=== PATIENT | female | born 1965 | race Caucasian/White ===

== ENCOUNTER → 2017-03-25 | Outpatient (CLI) | payer OTHER ==
[~2017-03-25] MED LIST: /ONDA4TA OR; /PANT40TA OR; ASPI325T OR; BACITAB PO; BACT800T PO; BENA25TA4 PO; CEPH500C PO; CIPR500T19 PO; CIPR500T4 OR; COUM1TAB17 PO; COUM2.5T17 PO; FLAG500T OR; FLAG500T PO; IBUP200T2 PO; MELO15TA4 PO; MOM30SS PO; MUPI2OI EXT; PANT20TA PO; PERC7.5T8 OR; PHEN 25 PO; SM I100T PO; TRAM50TA2 PO; TYLE325T5 PO; TYLE650T30 PO; ULTR50TA PO; VANC5INJ5 PO
[2017-03-25 11:43] LABS: MEAN CORPUSCULAR HEMOGLOBIN 30.7 pg (27.0-33.0); WHITE BLOOD COUNT 6.5 K/mm3 (4.0-10.0)
[2017-03-25 11:50] LABS: INR 0.93
[2017-03-25 12:28] LABS: ALBUMIN/GLOBULIN RATIO 1.21 (1.00-1.93); ALKALINE PHOSPHATASE 72 U/L (45-117); ALT/SGPT 26 U/L (12-78); ANION GAP 8 MEQ/L (8-16); AST/SGOT 16 U/L (15-37); BILIRUBIN,TOTAL 0.4 MG/DL (0.2-1.0); BLOOD UREA NITROGEN 15 MG/DL (7-18); CALCIUM LEVEL 8.9 MG/DL (8.5-10.1); CARBON DIOXIDE LEVEL 27 MEQ/L (21-32); CHLORIDE LEVEL 104 MEQ/L (98-107); CREATININE FOR GFR 0.67 MG/DL (0.55-1.02); GLOMERULAR FILTRATION RATE > 60.0 (>51); GLUCOSE, FASTING 83 MG/DL (70-105); POTASSIUM SERUM 4.2 MEQ/L (3.5-5.1); SODIUM LEVEL 139 MEQ/L (136-145); TOTAL PROTEIN 7.3 GM/DL (6.4-8.2)
--- NOTE | 2017-03-25 12:39 | REP ---
PA and lateral chest: Comparison is 01/17/2015. The lung guallpa are clear. The cardiac size is normal The ari, mediastinum, and bony thorax are unremarkable. Impression: Negative PA and lateral chest. There is no interval change. Signed by Eric Kirk MD 03/25/2017 12:31 P
--- NOTE | 2017-03-25 19:26 | ECGEPIP ---
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
== END ==
LOC: M ADMPAT 10:23
PROVIDERS: ATTEND Orthopaedic Surgery
DX: Z01.818 Encounter for other preprocedural examination (principal); M17.11 Unilateral primary osteoarthritis, right knee

== ENCOUNTER 2017-04-08 05:47 | Inpatient (IN) | payer OTHER ==
[2017-03-25 11:29] VITALS: BP 130/94
--- NOTE | 2017-03-29 08:40 | HPE ---
DATE OF ADMISSION: 04/08/2017 CHIEF COMPLAINT: Left knee pain and stiffness. HISTORY: This is a pleasant 51-year-old female patient with progressively worsening left knee pain and stiffness. She failed to improve with conservative management to include rest, activity modification, and multitude of injections. She elected for surgery for her continued symptoms. She has pain with weightbearing activities and activities of daily living. She has consented for left total knee arthroplasty by Dr. Bridges. X-rays notable for advanced degenerative changes of the left knee. Medical optimization, none requested. CURRENT MEDICATIONS: Meloxicam 15 mg one tablet once per day. She will discontinue that 5 days prior to surgery. She also takes pantoprazole 20 mg 1 tablet once per day. ALLERGIES: Include CIPRO and KEFLEX. MEDICAL HISTORY: Includes gastric reflux disease, as well as symptomatic osteoarthritis of the left knee. PAST SURGICAL HISTORY: Total hysterectomy and surgery on her right index finger. SOCIAL HISTORY: She does smoke every day. She has been recommended to discontinue smoking. She does not consume alcohol. She continues to work. FAMILY HISTORY: Noncontributory. REVIEW OF SYSTEMS: Denies fever or chills. Denies chest pain, shortness breath or cough. Denies difficulty breathing. Denies abdominal pain. Denies nausea or vomiting. Notes persistent pain in her left knee with weightbearing activities and activities of daily living. PHYSICAL EXAMINATION: Physical exam today reveals a well-nourished, well-developed, alert female patient. She walks with a slow gait. She favors her left side. Exam of the left knee does reveal the skin to be intact. No erythema, edema or ecchymosis. Irritability on knee range of motion. Patellar grind is positive. There is tenderness mainly along the medial joint line. Range of motion is near full but irritability at the extremes of range of motion. Calf is soft, nontender to palpation. She can sensate light touch. Dorsalis pedis, posterior tibialis pulses are palpable. Neck is supple without adenopathy or jugular venous distention (JVD). Lungs are clear to auscultation without rales or wheeze. Heart has regular rate and rhythm. Abdomen with bowel sounds present. VITAL SIGNS: Notable for weight 212 pounds, height 63 inches, temperature 98.5, pulse 75, blood pressure 138/80, respirations 15. LABORATORY DATA: Chest x-ray is no acute cardiopulmonary process noted. EKG sinus bradycardia. WBC count 6.5, RBC count 4.5, hemoglobin 13.6, hematocrit 42.4, PT 12.5, INR 0.93. Urine culture negative. Nasal sinus culture is pending. Urinalysis within normal limits. Sed rate of 8, sodium 83, BUN 15, creatinine 0.67, potassium is 4.2. Sodium is 139. IMPRESSION: Symptomatic osteoarthritis of the left knee. PLAN: She has consented for a left knee arthroplasty by Dr. Bridges.
[2017-04-08] VITALS (7 sets, daily range): BP systolic 103–153; BP diastolic 50–86
[~2017-04-08] VITALS: Ht 165.1 cm; Wt 97.1 kg
[~2017-04-08 05:47] MED LIST changes: +BUPIVACAINE HCL 0.25% 30 ML VIAL As Ordered ONE; -COUM1TAB17 PO; -COUM2.5T17 PO; +EPINEPHrine 1MG/10ML SYRINGE 1.5IN As Ordered ONE; -MUPI2OI EXT; -TRAM50TA2 PO; +TRANEXAMIC ACID 100 MG/ML 10ML VIAL As Ordered ONE; +ceFAZolin 1GM INJ (J0690) As Ordered ONE
[2017-04-08] MEDS ORDERED: LR 1,000 ML IV SCH ×3 (06:00→09:45)
[2017-04-08] MEDS ORDERED: CLINDAMYCIN 600 MG in APPROPRIATE DILUENT 1 EA IV ONE (06:00)
[2017-04-08] MEDS ORDERED: PROPOFOL 200 MG/20 ML VIAL As Ordered ONE (06:21)
[2017-04-08] MEDS ORDERED: LIDOCAINE 2% INJ 100 MG/5 ML SDV (FOR ANES.) As Ordered ONE (06:21)
[2017-04-08] MEDS ORDERED: MUPI2OI EXT (06:36)
[2017-04-08] MEDS ORDERED: COUM1TAB17 PO (06:37)
[2017-04-08] MEDS ORDERED: fentaNYL 100 MCG/2 ML INJECTION (J3010) As Ordered ONE ×3 (07:08→08:51)
[2017-04-08] MEDS ORDERED: MIDAZOLAM INJ 2 MG/2 ML VIAL (J2250) As Ordered ONE ×2 (07:08→08:51)
[2017-04-08] MEDS ORDERED: CLINDAMYCIN INJ 900MG/6ML VIAL As Ordered ONE (07:15)
[2017-04-08] MEDS ORDERED: EPINEPHrine INJ 1 MG/ML 1ML AMP As Ordered ONE (07:17)
[2017-04-08] MEDS: PANTOPRAZOLE 20 MG TAB PO SCH (09:00)
[2017-04-08] MEDS ORDERED: MIDAZOLAM INJ 2 MG/2 ML VIAL (J2250) IV ONE ×2 (09:15→09:30)
[2017-04-08] MEDS ORDERED: fentaNYL 100 MCG/2 ML INJECTION (J3010) IV ONE (09:15)
[2017-04-08] MEDS ORDERED: MORPHINE 1MG/ML IN 0.9% NACL 100ML IV BAG As Ordered ONE (09:33)
[2017-04-08] MEDS ORDERED: FLEET ENEMA PR PRN (09:45)
[2017-04-08] MEDS ORDERED: HYDROmorphone HCL 1 MG/ML SYRINGE (J1170) IV PRN (09:45)
[2017-04-08] MEDS: LR 1,000 ML IV SCH ×2 (09:45→23:05)
[2017-04-08] MEDS ORDERED: ACETAMINOPHEN TAB 650MG DOSE (2X325MG) PO PRN (09:45)
[2017-04-08] MEDS ORDERED: PERCOCET 5MG/325MG TAB PO PRN (09:45)
[2017-04-08] MEDS ORDERED: ONDANSETRON 4MG/2ML VIAL (J2405) IV PRN ×2 (09:45→10:00)
[2017-04-08] MEDS ORDERED: fentaNYL 100 MCG/2 ML INJECTION (J3010) IV PRN (09:45)
[2017-04-08] MEDS ORDERED: NALBUPHINE HCL 10 MG/ML AMP (J2300) IV PRN (10:00)
[2017-04-08] MEDS ORDERED: diphenhydrAMINE INJ 50MG/ML VIAL (J1200) IV PRN (10:00)
[2017-04-08] MEDS ORDERED: MORPHINE 1MG/ML IN 0.9% NACL 100ML IV BAG IV PRN (10:00)
[2017-04-08] MEDS ORDERED: PATIENT IS CURRENTLY ON AN ON-Q PAIN BUSTER PAIN RELIEF SYSTEM XX SCH (10:00)
[2017-04-08] MEDS ORDERED: EPIDURAL/PCA KEYS XX PRN (10:00)
[2017-04-08] MEDS ORDERED: NALOXONE INJ 0.4 MG/1 ML VIAL (J2310) IV PRN (10:00)
[2017-04-08] MEDS ORDERED: MEPERIDINE INJ 25 MG/ML VIAL (J2175) As Ordered ONE (10:04)
[2017-04-08] MEDS: MEPERIDINE INJ 25 MG/ML VIAL (J2175) IV PRN ×2 (10:05→10:10)
[2017-04-08] MEDS ORDERED: LIDOCAINE 1% MDV 20ML VIAL ONE (10:40)
[2017-04-08] MEDS ORDERED: dexameTHASONE 10 MG/1 ML VIAL PRES.FREE (J1100) ONE (10:40)
[2017-04-08] MEDS ORDERED: ROPIvacaine 0.5% 30 ML INJECTION (J2795) ONE (10:40)
[2017-04-08] MEDS: ONDANSETRON 4MG/2ML VIAL (J2405) IV PRN ×2 (14:05→22:20)
[2017-04-08] MEDS: CLINDAMYCIN 600 MG in APPROPRIATE DILUENT 1 EA IV SCH (16:22)
[2017-04-08] MEDS ORDERED: WARFARIN SOD 5 MG TAB PO ONE (17:00)
[2017-04-09] MEDS: CLINDAMYCIN 600 MG in APPROPRIATE DILUENT 1 EA IV SCH (00:11)
[2017-04-09 02:00] VITALS: BP 121/74
[2017-04-09 06:00] VITALS: BP 109/70
[2017-04-09] MEDS ORDERED: PERCOCET 5MG/325MG TAB PO PRN ×2 (06:45)
[2017-04-09 07:05] LABS: MEAN CORPUSCULAR HEMOGLOBIN 31.1 pg (27.0-33.0); MEAN CORPUSCULAR HGB CONC 32.7 g/dl (32.0-36.5); RED CELL DISTRIBUTION WIDTH 13.1 % (11.5-14.5); WHITE BLOOD COUNT 9.8 K/mm3 (4.0-10.0)
[2017-04-09 07:12] LABS: INR 1.24
[2017-04-09] MEDS: MOM 30ML SUSPENSION UDC PO SCH (09:25)
[2017-04-09] MEDS: MIRALAX *UNIT DOSE* 17GM PACKET PO SCH (09:25)
[2017-04-09] MEDS: PANTOPRAZOLE 20 MG TAB PO SCH (09:26)
[2017-04-09] MEDS: SENOKOT S TAB PO SCH ×2 (09:26→21:00)
[2017-04-09] MEDS: ONDANSETRON 4 MG TAB (S0181) PO PRN ×3 (09:29→17:22)
[2017-04-09 10:00] VITALS: BP 125/69
--- NOTE | 2017-04-09 10:13 | REP ---
AP LATERAL LEFT KNEE: 04/09/2017 COMPARISON: 12/02/2015, 01/17/2015. CLINICAL HISTORY: Status post left total knee arthroplasty. FINDINGS: Two-view show skin yanni anteriorly and left total knee arthroplasty hardware with the three components well-aligned in relationship to the [place] bone and each other. There is a drain in the soft tissues laterally about the knee. Alignment of the proximal and distal components as well as the tibial fibular articulation normal. IMPRESSION: 1. Status post left total knee arthroplasty with skin yanni and a drain in the medial soft tissues about the knee. Alignment of the prosthetic components is normal. Signed by Fidel Herrera MD 04/09/2017 06:55 P
--- NOTE | 2017-04-09 10:36 | RO ---
DATE OF PROCEDURE: 04/08/2017 PREPROCEDURE DIAGNOSIS: Left knee osteoarthritis. POSTOPERATIVE DIAGNOSIS: Left knee osteoarthritis. PROCEDURE: Left total knee arthroplasty using PFC rotating platform size 4 narrow femur, size 3 tibial tray, 10 polyethylene, 32 patellar button. SURGEON: Everardo Bridges MD BUSINESS FUNCTIONAL ANALYST: SYLVIA Alejandre ANESTHESIA: Spinal ESTIMATED BLOOD LOSS: Less than 50. COMPLICATIONS: None. INDICATIONS: This is a 51-year-old woman who is obese and has had severe knee pain and limitations, inability to get around and she wished to go ahead with a knee replacement, having failed conservative management. She understood the nature of the procedure and the risks, including bleeding, infection, damage to nerves, vessels, persistent pain, wear loosening, blood clots, medical problems, among others. She understood that these are often harder on people that are a little bit younger and often harder on obese patients with a much higher complication rate. She wished proceed. DESCRIPTION OF PROCEDURE: The patient was taken to the operating room and placed in supine position after spinal anesthesia was induced. The left lower extremity was prepped and draped in usual sterile fashion. Tourniquet was placed and inflated to 325 due to her significant obesity. Time-out was performed. A longitudinal incision was made over the anterior aspect of the knee. A medial parapatellar arthrotomy was performed per routine. I then everted the patella, removed some the fat pad for visualization. Flexed the knee up. Used a canal initiating reamer around the femoral side, followed by the intramedullary guide set at 5 degrees of valgus and 10. The guide was pinned in place. The assistant store leader made the distal femoral cut and we removed the excess bone. I sized the femur to be a 4, but I felt that a 4 narrow would be the best fit. This was secured in place. We used the external rotation guide, pinned this in place and the four cutting block was then placed. This was secured in place and the remaining cuts were made. I then prepared the tibia. Posterior retractors were placed. We used the tibial alignment guide to set the appropriate amount of posterior slope and valgus and pinned this in place at about 2 mm off the low side, which was 10 off the high side. The cut was then made after the external alignment guide was used. Removed excess bone. Removed soft tissue and osteophytes from either side of the knee. The spacer blocks were then used. A size 10 was felt to be appropriate in flexion/extension. had excellent stability and alignment. I did have to free up the MCL to some degree. Tibial tray was prepared with a size 3 tray, pinned in place, drilled, broached, and the trial polyethylene was placed. We also placed the femoral component and excellent range of motion and alignment were noted. The patella was then prepared. Freehand cut was made removing 7 mm of bone. I then sized to be a 32, drilled, placed the trial button, put the knee through range of motion again. Very pleased with the position of the components. She had good flexion back to the point where her soft tissue impinged behind her leg. I then drilled the end of the femur, as assistant store leader for the bone cement in the modern technique. We then cemented on the tibial tray. After copious irrigation, we impacted this in place. We dried the bony surfaces, removed excess bone cement then placed the polyethylene size 10 x 4 and femur was placed, cemented in place, and impacted down. Removed excess bone cement, cemented on the patella, held it in place with a patellar clamp and removed excess bone cement. This was held in place until the cement hardened. I closed the deep layer with some interrupted #1 Vicryl suture and then a Stratafix suture was used starting at the midportion. We worked in both directions, obtaining an excellent watertight closure. We had irrigated multiple times up to this point. We again irrigated, closed the subcutaneous with #2-0 Vicryl and the skin with yanni. A PainBuster catheter was inserted through the superolateral aspect of the knee and primed, and then hooked up in the usual fashion. Tourniquet was deflated. Sterile dressing had been applied. She was taken to recovery room in stable condition. There were no known complications. Plan will be routine postop for a knee replacement. ADDENDUM: 04/08/2017, jaclyn The assistant store leader was instrumental in holding retractors, making one of the bone cuts, mixing the cement and assisting in wound closure.
[2017-04-09 14:00] VITALS: BP 126/69
[2017-04-09] MEDS ORDERED: MAALOX 30 ML SUSP *UDC PO PRN (15:45)
[2017-04-09] MEDS: traMADol 50 MG TAB PO PRN ×2 (15:49→20:01)
[2017-04-09] MEDS ORDERED: WARFARIN SOD 5 MG TAB PO ONE (17:00)
[2017-04-09 18:00] VITALS: BP 132/72
[2017-04-09 22:00] VITALS: BP 135/86
[2017-04-10] MEDS: traMADol 50 MG TAB PO PRN ×3 (02:05→14:12)
[2017-04-10 06:00] VITALS: BP 133/78
[2017-04-10 06:42] LABS: MEAN CORPUSCULAR HEMOGLOBIN 30.6 pg (27.0-33.0); MEAN CORPUSCULAR HGB CONC 32.1 g/dl (32.0-36.5); MEAN CORPUSCULAR VOLUME 95.4 fl (80.0-96.0); RED CELL DISTRIBUTION WIDTH 13.1 % (11.5-14.5); WHITE BLOOD COUNT 8.6 K/mm3 (4.0-10.0)
[2017-04-10 06:52] LABS: INR 1.48
[2017-04-10] MEDS: PANTOPRAZOLE 20 MG TAB PO SCH (07:54)
[2017-04-10] MEDS: MOM 30ML SUSPENSION UDC PO SCH (07:54)
[2017-04-10] MEDS: SENOKOT S TAB PO SCH (07:55)
[2017-04-10] MEDS: MIRALAX *UNIT DOSE* 17GM PACKET PO SCH (07:55)
[2017-04-10] MEDS ORDERED: COUM2.5T17 PO (07:58)
[2017-04-10] MEDS ORDERED: TRAM50TA2 PO (07:58)
--- NOTE | 2017-04-14 08:04 | DSES ---
DATE OF ADMISSION: 04/08/2017 DATE OF DISCHARGE: 04/10/2017 ADMISSION DIAGNOSIS: Left knee arthritis. OTHER DIAGNOSIS: Gastric reflux disease. OPERATION PERFORMED: Left total knee arthroplasty. DISCHARGE DIAGNOSIS: Left knee arthritis status post left total knee arthroplasty. HISTORY: This is a pleasant 51-year-old female with progressively worsening left knee pain and stiffness. The patient was admitted for elective left knee replacement. HOSPITAL COURSE: The patient was admitted on the day of surgery and underwent left total knee arthroplasty which was uneventful. Her hospital course was without complications. The patient was up with physical therapy per the protocol and her pain was controlled. On the day of discharge the patient was doing well. She was weightbearing as tolerated, will move her knee to prevent stiffness, will use adjusted dose Coumadin and CINDY stockings for DVT prophylaxis. She will use oral medications for pain control. Also she will follow in the office in 2 weeks for staple removal, will resume preoperative medications and diet and she was given instructions for wound monitoring and activity limitations. Please refer to the medical record for further detail.
== END 2017-04-10 15:25 | disposition home health service (06) | DRG 302 ==
LOC: M OR 05:47 → M MS5PR 13:00
PROVIDERS: ADMIT Orthopaedic Surgery; ATTEND Orthopaedic Surgery
PROC: 0SRD0J9 Replacement of Left Knee Joint with Synthetic Substitute, Cemented, Open Approach (ICD-10-PCS; principal; 2017-04-08 07:30)
DX: M17.12 Unilateral primary osteoarthritis, left knee (principal); F17.210 Nicotine dependence, cigarettes, uncomplicated; K21.9 Gastro-esophageal reflux disease without esophagitis; Z88.1 Allergy status to other antibiotic agents; R26.9 Unspecified abnormalities of gait and mobility

== ENCOUNTER → 2017-04-11 | Outpatient (REF) | payer OTHER ==
[~2017-04-11] MED LIST changes: -BUPIVACAINE HCL 0.25% 30 ML VIAL As Ordered ONE; +COUM1TAB17 PO; +COUM2.5T17 PO; -EPINEPHrine 1MG/10ML SYRINGE 1.5IN As Ordered ONE; +MUPI2OI EXT; +TRAM50TA2 PO; -TRANEXAMIC ACID 100 MG/ML 10ML VIAL As Ordered ONE; -ceFAZolin 1GM INJ (J0690) As Ordered ONE
[2017-04-11 12:41] LABS: INR 1.83
== END ==
LOC: M SHH 11:28
PROVIDERS: ATTEND Nurse Practitioner Family
DX: Z51.81 Encounter for therapeutic drug level monitoring (principal); Z79.01 Long term (current) use of anticoagulants

== ENCOUNTER → 2017-04-15 | Outpatient (REF) | payer OTHER ==
[2017-04-15 16:18] LABS: INR 3.02
== END ==
LOC: M SHH 15:03
PROVIDERS: ATTEND Nurse Practitioner Family
DX: Z51.81 Encounter for therapeutic drug level monitoring (principal); Z79.01 Long term (current) use of anticoagulants

== ENCOUNTER → 2017-04-18 | Outpatient (REF) | payer OTHER ==
[2017-04-18 17:24] LABS: INR 1.21
== END ==
LOC: M SHH 15:43
PROVIDERS: ATTEND Nurse Practitioner Family
DX: Z51.81 Encounter for therapeutic drug level monitoring (principal); Z79.01 Long term (current) use of anticoagulants

== ENCOUNTER → 2017-04-22 | Outpatient (REF) | payer OTHER ==
[2017-04-22 17:01] LABS: INR 1.23
== END ==
LOC: M LABDRAW1 15:48
PROVIDERS: ATTEND Nurse Practitioner Family
DX: Z51.81 Encounter for therapeutic drug level monitoring (principal); Z79.01 Long term (current) use of anticoagulants

== ENCOUNTER → 2017-04-25 | Outpatient (REF) | payer OTHER ==
[2017-04-25 13:41] LABS: INR 1.66
== END ==
LOC: M LAB REF 12:37
PROVIDERS: ATTEND Orthopaedic Surgery
DX: Z51.81 Encounter for therapeutic drug level monitoring (principal); Z79.01 Long term (current) use of anticoagulants; M17.12 Unilateral primary osteoarthritis, left knee

== ENCOUNTER → 2017-04-29 | Outpatient (REF) | payer OTHER ==
[2017-04-29 14:30] LABS: INR 2.24
== END ==
LOC: M LABDRAW1 11:24
PROVIDERS: ATTEND Orthopaedic Surgery
DX: M17.12 Unilateral primary osteoarthritis, left knee (principal); Z98.890 Other specified postprocedural states

== ENCOUNTER → 2017-05-02 | Outpatient (REF) | payer OTHER ==
[2017-05-02 10:46] LABS: INR 1.96
== END ==
LOC: M LABDRAW1 10:18
PROVIDERS: ATTEND Orthopaedic Surgery
DX: Z51.81 Encounter for therapeutic drug level monitoring (principal); Z79.01 Long term (current) use of anticoagulants; M17.12 Unilateral primary osteoarthritis, left knee; Z96.652 Presence of left artificial knee joint

== ENCOUNTER → 2017-05-06 | Outpatient (REF) | payer OTHER ==
[2017-05-06 12:20] LABS: INR 1.49
== END ==
LOC: M LAB REF 12:00
PROVIDERS: ATTEND Orthopaedic Surgery
DX: Z51.81 Encounter for therapeutic drug level monitoring (principal); Z79.01 Long term (current) use of anticoagulants

== ENCOUNTER → 2017-07-31 | Outpatient (REF) ==
--- NOTE | 2017-07-31 13:42 | REP ---
Clinical: Pain and disability. Technique: AP, lateral, coned-down views of the lumbosacral spine. Findings: Alignment and lordosis maintained without acute fracture / compression injury or subluxation. Advanced degenerative disc osteophyte complex at the L4-5 and L5-S1 levels include marginal osteophytes, endplate sclerosis, disc space obliteration and hypertrophic facet changes. Remainder examination is relatively normal for age. Impression: Advanced degenerative changes at the L4-5 and L5-S1 levels. Signed by Waldo Hickman MD 07/31/2017 01:33 P
== END ==
LOC: M SMT 13:07
PROVIDERS: ATTEND Internal Medicine
DX: M51.36 Other intervertebral disc degeneration, lumbar region (principal)

== ENCOUNTER → 2017-09-28 | Outpatient (CLI) | payer OTHER ==
[2017-09-28 09:24] LABS: BASO % 0.5 % (0.0-1.0); EOS # 0.1 10^3/uL (0.0-0.50); EOS % 1.2 % (0.0-3.0); HEMOGLOBIN 14.4 g/dl (12.0-16.0); IMMATURE GRANULOCYTE % 0.2 % (0-0); LYMPH # 2.7 10^3/uL (1.5-4.5); LYMPH % 40.2 % (24.0-44.0); MEAN CORPUSCULAR HEMOGLOBIN 29.1 pg (27.0-33.0); MEAN CORPUSCULAR VOLUME 90.9 fl (80.0-96.0); MONO # 0.6 10^3/uL (0.0-0.8); MONO % 9.6 % (0.0-5.0); NEUTROPHILS # 3.2 10^3/uL (1.8-7.7); NEUTROPHILS % 48.3 % (36.0-66.0); PLATELET COUNT, AUTOMATED 311 10^3/uL (150-450); RED BLOOD COUNT 4.95 10^6/uL (4.00-5.40); RED CELL DISTRIBUTION WIDTH 13.9 % (11.5-14.5); WHITE BLOOD COUNT 6.6 10^3/uL (4.0-10.0)
[2017-09-28 09:48] LABS: ANION GAP 10 MEQ/L (8-16); BLOOD UREA NITROGEN 21 MG/DL (7-18); CALCIUM LEVEL 8.8 MG/DL (8.5-10.1); CARBON DIOXIDE LEVEL 21 MEQ/L (21-32); CHLORIDE LEVEL 109 MEQ/L (98-107); CREATININE FOR GFR 0.76 MG/DL (0.55-1.02); GLOMERULAR FILTRATION RATE > 60.0 (>51); GLUCOSE, FASTING 111 MG/DL (70-105); POTASSIUM SERUM 4.4 MEQ/L (3.5-5.1); SODIUM LEVEL 140 MEQ/L (136-145)
== END ==
LOC: M LAB 08:39
DX: K57.92 Diverticulitis of intestine, part unspecified, without perforation or abscess without bleeding (principal)
CPT/HCPCS: 80048

== ENCOUNTER → 2018-10-15 | Outpatient (CLI) | payer OTHER ==
[~2018-10-15] MED LIST changes: +AMMO12CR4 TOP; +AUGM875T28 PO; +IBUP1TAB6 PO; +MELO15TA28 PO; -MELO15TA4 PO; -PANT20TA PO; +PANT20TA2 PO
[2018-10-15 17:38] LABS: BASO % 0.2 % (0.0-1.0); EOS % 0.2 % (0.0-3.0); HEMATOCRIT 47.1 % (36.0-47.0); LYMPH # 1.1 10^3/uL (1.5-4.5); LYMPH % 13.7 % (24.0-44.0); MEAN CORPUSCULAR HEMOGLOBIN 29.7 pg (27.0-33.0); MEAN CORPUSCULAR HGB CONC 31.8 g/dl (32.0-36.5); MEAN CORPUSCULAR VOLUME 93.3 fl (80.0-96.0); MONO # 0.7 10^3/uL (0.0-0.8); MONO % 8.1 % (0.0-5.0); NEUTROPHILS # 6.3 10^3/uL (1.8-7.7); NEUTROPHILS % 77.4 % (36.0-66.0); PLATELET COUNT, AUTOMATED 293 10^3/uL (150-450); RED BLOOD COUNT 5.05 10^6/uL (4.00-5.40); WHITE BLOOD COUNT 8.2 10^3/uL (4.0-10.0)
[2018-10-15 17:42] LABS: ALT/SGPT 46 U/L (12-78); BILIRUBIN,TOTAL 0.6 MG/DL (0.2-1.0); BLOOD UREA NITROGEN 19 MG/DL (7-18); CALCIUM LEVEL 8.9 MG/DL (8.5-10.1); CARBON DIOXIDE LEVEL 25 MEQ/L (21-32); CHLORIDE LEVEL 104 MEQ/L (98-107); CREATININE FOR GFR 0.86 MG/DL (0.55-1.30); GLOMERULAR FILTRATION RATE > 60.0 (>51); GLUCOSE, FASTING 77 MG/DL (70-100); POTASSIUM SERUM 4.2 MEQ/L (3.5-5.1); SODIUM LEVEL 137 MEQ/L (136-145)
[2018-10-15 17:43] LABS: ALBUMIN 4.5 GM/DL (3.2-5.2); LIPASE 91 U/L (73-393); TOTAL PROTEIN 8.3 GM/DL (6.4-8.2)
== END ==
LOC: M WUC 12:54
PROVIDERS: ATTEND Physician Assistant
DX: K57.32 Diverticulitis of large intestine without perforation or abscess without bleeding (principal)

== ENCOUNTER 2018-10-20 16:10 | Inpatient (IN) | payer OTHER ==
[~2018-10-20] VITALS: Ht 162.6 cm; Wt 108.4 kg
[~2018-10-20 16:10] MED LIST changes: -AMMO12CR4 TOP; -AUGM875T28 PO; -IBUP1TAB6 PO
[2018-10-20] MEDS ORDERED: NS 1,000 ML IV SCH (17:01)
[2018-10-20] MEDS ORDERED: PANTOPRAZOLE 40MG INJ (PROTONIX) (C9113) IV ONE (17:15)
[2018-10-20] MEDS ORDERED: ONDANSETRON 4MG/2ML VIAL (J2405) IV ONE ×2 (17:15→22:15)
[2018-10-20] MEDS: MORPHINE 2 MG/ML 1ML SYRINGE (J2270) IV PRN ×2 (17:43→22:54)
[2018-10-20 17:51] LABS: BASO % 0.3 % (0.0-1.0); EOS # 0.1 10^3/uL (0.0-0.50); EOS % 0.5 % (0.0-3.0); HEMATOCRIT 40.4 % (36.0-47.0); HEMOGLOBIN 13.4 g/dl (12.0-15.5); LYMPH # 2.2 10^3/uL (1.5-4.5); LYMPH % 22.2 % (24.0-44.0); MEAN CORPUSCULAR HGB CONC 33.2 g/dl (32.0-36.5); MEAN CORPUSCULAR VOLUME 90.4 fl (80.0-96.0); MONO # 0.5 10^3/uL (0.0-0.8); MONO % 5.6 % (0.0-5.0); NEUTROPHILS # 6.9 10^3/uL (1.8-7.7); PLATELET COUNT, AUTOMATED 262 10^3/uL (150-450); RED BLOOD COUNT 4.47 10^6/uL (4.00-5.40); WHITE BLOOD COUNT 9.7 10^3/uL (4.0-10.0)
[2018-10-20] MEDS: GASTROGRAFIN SOLUTION 30ML PO SCH ×2 (18:10→18:40)
[2018-10-20 18:18] LABS: INR 1.05; PROTHROMBIN TIME 13.8 SECONDS (12.1-14.4)
[2018-10-20 18:24] LABS: ALT/SGPT 52 U/L (12-78); BILIRUBIN,DIRECT 0.1 MG/DL (0.0-0.2); BILIRUBIN,TOTAL 0.3 MG/DL (0.2-1.0); BLOOD UREA NITROGEN 12 MG/DL (7-18); CALCIUM LEVEL 8.8 MG/DL (8.5-10.1); CARBON DIOXIDE LEVEL 26 MEQ/L (21-32); CHLORIDE LEVEL 104 MEQ/L (98-107); CREATININE FOR GFR 0.73 MG/DL (0.55-1.30); GLOMERULAR FILTRATION RATE > 60.0 (>51); GLUCOSE, FASTING 92 MG/DL (70-100); LIPASE 139 U/L (73-393); POTASSIUM SERUM 3.8 MEQ/L (3.5-5.1); SODIUM LEVEL 138 MEQ/L (136-145); TOTAL PROTEIN 7.2 GM/DL (6.4-8.2)
[2018-10-20] MEDS ORDERED: METOCLOPRAMIDE INJ 10MG/2ML VIAL (J2765) IV ONE (18:30)
[2018-10-20] MEDS ORDERED: ISOVUE-370 76% 100ML VIAL (Q9967) As Ordered ONE (19:55)
--- NOTE | 2018-10-20 22:06 | REPVR ---
EXAM: CT Abdomen and Pelvis With Contrast EXAM DATE/TIME: 10/20/18 (8:11pm) CLINICAL HISTORY: 53 year old female with generalized abdominal pain. Diverticulitis. TECHNIQUE: Axial computed tomography images of the abdomen and pelvis with intravenous contrast. All CT scans at this facility use at least one of these dose optimization techniques: automated exposure control; mA and/or kV adjustment per patient size (includes targeted exams where dose is matched to clinical indication); or iterative reconstruction. Coronal and sagittal reformatted images were created and reviewed. CONTRAST: 100 ml of Isovue 370 administered intravenously COMPARISON: CT ABDOMEN PELVIS of 11/29/15 FINDINGS: Lower thorax: No acute findings. No pleural effusions. ABDOMEN: Liver: No solid mass. Diffuse fatty infiltration. Gallbladder and bile ducts: Distended gallbladder. No calcified stones. No ductal dilatation. Pancreas: Normal. No ductal dilatation. Spleen: Normal. No splenomegaly. Adrenals: Normal. No mass. Kidneys and ureters: Normal. No hydronephrosis. Stomach and bowel: Distended stomach, filled with oral contrast and air. Multiple fluid-filled, distended small bowel loops. Some of the distended, distal small bowel loops show 'fecalization' of bowel contents. More proximal small bowel loops are less distended. The colon is not significantly distended. Probable previous surgery involving small bowel in the right upper pelvis. No diverticulitis changes. Appendix: Perhaps a normal appendix is visualized. No evidence of appendicitis. PELVIS: Bladder: Unremarkable as visualized. Reproductive: Unremarkable as visualized. ABDOMEN and PELVIS: Intraperitoneal space: Normal. No free air. No significant fluid collection. Bones/joints: No acute fracture nor dislocation. Degenerative changes in the lower lumbar spine. Soft tissues: Unremarkable. Vasculature: Normal. No abdominal aortic aneurysm. Lymph nodes: Normal. No enlarged lymph nodes. IMPRESSION: Suspect a mechanical small bowel obstruction (SBO). The point of obstruction may be in the proximal half of the ileum, eg. An alternative consideration is small bowel ileus, perhaps of some chronicity. Previous surgery involving small bowel in the right upper pelvis. No free air. No bowel obstruction. No abscess. No diverticulitis changes. No hydronephrosis. Close follow-up and surgical consultation are suggested. Electronically signed by: Sabrina Crabtree On 10/20/2018 22:06:21 PM
[2018-10-20] MEDS ORDERED: AUGM875T28 PO (22:52)
[2018-10-20] MEDS ORDERED: IBUP1TAB6 PO (22:52)
[2018-10-20] MEDS ORDERED: AMMO12CR4 TOP (22:52)
[2018-10-20] MEDS ORDERED: MELO15TA28 PO (22:52)
[2018-10-20] MEDS ORDERED: ACETAMINOPHEN TAB 650MG DOSE (2X325MG) PO PRN (23:15)
[2018-10-20] MEDS ORDERED: MORPHINE 4 MG/ML 1ML VIAL/SYRINGE (J2270) IV PRN (23:15)
[2018-10-20] MEDS ORDERED: KETOROLAC 30 MG/ML VIAL (J1885) IV ONE (23:30)
[2018-10-21] MEDS: MORPHINE 4 MG/ML 1ML VIAL/SYRINGE (J2270) IV PRN ×2 (02:15→13:50)
[2018-10-21] MEDS: LR 1,000 ML IV SCH ×4 (02:18→20:53)
[2018-10-21] MEDS: METOCLOPRAMIDE INJ 10MG/2ML VIAL (J2765) IV PRN ×3 (05:52→20:39)
[2018-10-21] MEDS: KETOROLAC 30 MG/ML VIAL (J1885) IV PRN ×2 (05:52→20:48)
[2018-10-21] MEDS: HEPARIN SOD (PORCINE) 5000 UNITS/ML VIAL SC SCH ×3 (06:05→20:39)
[2018-10-21] MEDS: PANTOPRAZOLE 40MG INJ (PROTONIX) (C9113) IV SCH (09:24)
[2018-10-21] MEDS: ONDANSETRON 4MG/2ML VIAL (J2405) IV PRN (10:46)
--- NOTE | 2018-10-21 10:51 | REP ---
Portable supine abdomen two views: Comparison is the abdomen and pelvis CT of 10/20/2018. The bowel gas pattern is normal, however, in the absence of upright views air-fluid levels cannot be determined. Fluid-filled dilated small bowel loops cannot be identified on plain films. There are surgical clips in the lower abdomen. The tip of an NG tube is seen in the left upper quadrant. The bladder is opacified, likely from the IV contrast for the comparison CT. Impression: Normal bowel gas pattern on plain films. However, fluid filled dilated small bowel loops cannot be identified on plain films. Air-fluid levels cannot be evaluated in the absence of upright views. Electronically Signed by Eric Kirk MD 10/21/2018 10:43 A
[2018-10-21 12:00] VITALS: BP 141/79
--- NOTE | 2018-10-21 17:38 | HPE ---
DATE OF ADMISSION: 10/20/2018 ADMITTING DIAGNOSIS: Small bowel obstruction. HISTORY OF PRESENT ILLNESS: The patient is a pleasant 53-year-old woman who presented to the emergency department with a history of intermittent episodes of some crampy abdominal pain, primarily in the left upper quadrant. She reports that these have been going on for some time intermittently and will cause pain and then resolve. Over the last week or so, she has noticed increased pains and then since Saturday10/19/2018, pain became more severe and then she developed some nausea and had vomiting starting on 10/20/2018. She presented to the emergency department and underwent evaluation which included a CT scan suggesting a possible small bowel obstruction. The patient in 2012 had undergone a sigmoid colectomy for recurring episodes of diverticulitis. Following this, she developed a wound infection and as part of her wound breakdown, she developed a small herniation which led to a limited small bowel resection and anastomosis. She has had no other abdominal surgery. Because of her CT findings, I was consulted to evaluate the patient regarding her possible need for surgery. ALLERGIES: Reported to the CEPHALEXIN and CIPROFLOXACIN. CURRENT MEDICATIONS: Include: - ammonium lactate cream applied to her right heel daily - Augmentin 875/125 mg tablets twice daily and this had been started last week - ibuprofen 600 mg by mouth three times a day as needed for pain - meloxicam 15 mg by mouth daily as needed for pain - Protonix 20 mg by mouth daily at noon PAST SURGICAL HISTORY: Includes a left total knee replacement. She underwent her sigmoid colectomy followed by a small bowel resection back in 2012. She has apparently had a cystoscopy and actually this was at the time of her bowel resection for placement of stents. She has had surgery on her left index finger as well as a hysterectomy. She had a colonoscopy about a year ago. PAST MEDICAL HISTORY: Shows no history of significant cardiac issues. She has a history of some gastroesophageal reflux. She has no endocrine disorders. She does have a history of some chronic back pain. FAMILY HISTORY: Noncontributory. PHYSICAL EXAMINATION: Reveals a pleasant woman lying on the hospital stretcher. She moans occasionally. She seems to move without assistance. She is alert and oriented. Skin is warm and dry. Mucous membranes are somewhat tacky. The neck is supple without mass or bruit. Lungs are clear to auscultation bilaterally. Heart examination shows a regular rate and rhythm. The abdomen shows a fairly quiet abdomen. She has a somewhat irregular midline scar, about 18 cm in length with some significant indentation toward the lower end of this. There is no sign of hernia. The abdomen is otherwise soft and with only some very mild direct tenderness. There is no peripheral edema and she has palpable radial and dorsalis pedis pulses. LABORATORY STUDIES: Include a CBC which revealed a white count of 10, hemoglobin of 13, hematocrit of 40, and a platelet count of 262,000. Differential count showed 71% neutrophils and 22% lymphocytes. Chemistry profile showed normal electrolytes, BUN, creatinine and glucose. Liver function tests were all entirely normal as well as was the lipase. CT scan images, I reviewed personally. She has two anastomoses identified in the bowel. One of these is in the distal sigmoid and the other is in a loop of small bowel low in the midportion of the abdomen. There is no definite free fluid and no free air. There is some mild dilation which seems to be on the proximal side or upstream side of her small bowel anastomosis. There are some mildly dilated fluid-filled loops of small bowel proximal to this. IMPRESSION: Small intestinal obstruction secondary to adhesions. PLAN: The patient is being admitted for management of her apparent intestinal obstruction. A nasogastric tube was ordered by the nurse practitioner in the emergency department and this will be placed and placed to low intermittent suction. She will be kept on IV maintenance fluid. I will not continue her antibiotics as the CT shows no sign of infection. She can received analgesics as necessary as well as antinausea agents. We will repeat kidney, ureter and bladder (KUB) in the morning to assess pattern of bowel gas to assess the progress of her obstruction.
--- NOTE | 2018-10-21 18:57 | ECGEPIP ---
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
[2018-10-21 20:58] VITALS: BP 118/70
[2018-10-22] VITALS (8 sets, daily range): BP systolic 114–173; BP diastolic 58–81
[2018-10-22] MEDS: LR 1,000 ML IV SCH ×2 (05:05→14:07)
[2018-10-22] MEDS: HEPARIN SOD (PORCINE) 5000 UNITS/ML VIAL SC SCH ×3 (05:06→23:01)
[2018-10-22] MEDS: KETOROLAC 30 MG/ML VIAL (J1885) IV PRN ×2 (07:14→07:24)
[2018-10-22] MEDS: METOCLOPRAMIDE INJ 10MG/2ML VIAL (J2765) IV PRN ×2 (07:14→14:00)
[2018-10-22] MEDS: ONDANSETRON 4MG/2ML VIAL (J2405) IV PRN (08:01)
[2018-10-22] MEDS: PANTOPRAZOLE 40MG INJ (PROTONIX) (C9113) IV SCH (08:01)
[2018-10-22] MEDS: MORPHINE 4 MG/ML 1ML VIAL/SYRINGE (J2270) IV PRN ×3 (08:07→17:12)
[2018-10-22 08:19] LABS: BASO % 0.4 % (0.0-1.0); EOS # 0.1 10^3/uL (0.0-0.50); EOS % 0.7 % (0.0-3.0); HEMATOCRIT 38.5 % (36.0-47.0); HEMOGLOBIN 12.6 g/dl (12.0-15.5); LYMPH # 4.2 10^3/uL (1.5-4.5); LYMPH % 41.2 % (24.0-44.0); MEAN CORPUSCULAR HGB CONC 32.7 g/dl (32.0-36.5); MEAN CORPUSCULAR VOLUME 91.7 fl (80.0-96.0); MONO # 0.7 10^3/uL (0.0-0.8); MONO % 6.8 % (0.0-5.0); NEUTROPHILS # 5.1 10^3/uL (1.8-7.7); NEUTROPHILS % 50.5 % (36.0-66.0); PLATELET COUNT, AUTOMATED 266 10^3/uL (150-450); WHITE BLOOD COUNT 10.2 10^3/uL (4.0-10.0)
[2018-10-22 08:36] LABS: BLOOD UREA NITROGEN 15 MG/DL (7-18); CALCIUM LEVEL 8.8 MG/DL (8.5-10.1); CARBON DIOXIDE LEVEL 26 MEQ/L (21-32); CHLORIDE LEVEL 106 MEQ/L (98-107); CREATININE FOR GFR 0.93 MG/DL (0.55-1.30); GLOMERULAR FILTRATION RATE > 60.0 (>51); GLUCOSE, FASTING 92 MG/DL (70-100); POTASSIUM SERUM 3.4 MEQ/L (3.5-5.1); SODIUM LEVEL 141 MEQ/L (136-145)
--- NOTE | 2018-10-22 10:43 | REP ---
Portable supine abdomen, single AP view: Comparison is to 08/10/2019. The bowel gas pattern is normal. There are surgical clips in the pelvis, unchanged. There are calcifications in the pelvis, likely phleboliths. The skeletal soft tissue structures otherwise are unremarkable. Impression: Normal bowel gas pattern. Electronically Signed by Eric Kirk MD 10/22/2018 10:34 A
--- NOTE | 2018-10-22 16:50 | ECGEPIP ---
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
[2018-10-22] MEDS ORDERED: BUPIVACAINE HCL 0.25% 30 ML VIAL As Ordered ONE (17:20)
[2018-10-22 17:33] LABS: CK-MB VALUE MASS < 1.0 NG/ML (<3.6); CPK CREATINE PHOSPHOKINASE 135 U/L (26-192); MB/CK RELATIVE INDEX 0.74 (< OR =4); TROPONIN I < 0.02 NG/ML (< 0.10)
[2018-10-22] MEDS ORDERED: ONDANSETRON 4MG/2ML VIAL (J2405) As Ordered ONE (18:18)
[2018-10-22] MEDS ORDERED: LIDOCAINE 2% JELLY 30 ML As Ordered ONE (18:18)
[2018-10-22] MEDS ORDERED: NEOSTIGMINE 10 MG/10 ML VIAL (J2710) As Ordered ONE (18:18)
[2018-10-22] MEDS ORDERED: ROCURONIUM BROMIDE 50 MG/5 ML VIAL As Ordered ONE (18:18)
[2018-10-22] MEDS ORDERED: LIDOCAINE 2% INJ 100 MG/5 ML SDV (FOR ANES.) As Ordered ONE (18:18)
[2018-10-22] MEDS ORDERED: dexameTHASONE 4 MG/ML 1ML VIAL (J1100) As Ordered ONE (18:18)
[2018-10-22] MEDS ORDERED: fentaNYL 100 MCG/2 ML INJECTION (J3010) As Ordered ONE (18:18)
[2018-10-22] MEDS ORDERED: GLYCOPYRROLATE INJ 0.2 MG/ML 2 ML VIAL As Ordered ONE (18:18)
[2018-10-22] MEDS ORDERED: PROPOFOL 200 MG/20 ML VIAL As Ordered ONE (18:18)
[2018-10-22] MEDS ORDERED: MIDAZOLAM INJ 2 MG/2 ML VIAL (J2250) As Ordered ONE (18:19)
[2018-10-22] MEDS ORDERED: HYDROmorphone HCL 2 MG/ML 1ML VIAL (J1170) As Ordered ONE (19:22)
[2018-10-22] MEDS ORDERED: hydrALAZINE INJ 20 MG/ML VIAL As Ordered ONE (20:55)
[2018-10-22] MEDS ORDERED: METOCLOPRAMIDE INJ 10MG/2ML VIAL (J2765) IV PRN (21:00)
[2018-10-22] MEDS ORDERED: PERCOCET 5MG/325MG TAB PO PRN (21:00)
[2018-10-22] MEDS: hydrALAZINE INJ 20 MG/ML VIAL IV SCH ×4 (21:00→21:37)
[2018-10-22] MEDS ORDERED: MORPHINE 10 MG/ML 1ML VIAL (J2270) IV PRN (21:00)
[2018-10-22] MEDS ORDERED: ONDANSETRON 4MG/2ML VIAL (J2405) IV PRN (21:00)
[2018-10-22] MEDS ORDERED: LR 1,000 ML IV SCH (21:00)
[2018-10-22] MEDS ORDERED: fentaNYL 100 MCG/2 ML INJECTION (J3010) IV PRN (21:00)
[2018-10-23] VITALS (8 sets, daily range): BP systolic 127–179; BP diastolic 58–92
[2018-10-23] MEDS: KETOROLAC 30 MG/ML VIAL (J1885) IV PRN ×3 (00:41→14:26)
[2018-10-23] MEDS: LR 1,000 ML IV SCH ×2 (05:39→07:09)
[2018-10-23] MEDS: HEPARIN SOD (PORCINE) 5000 UNITS/ML VIAL SC SCH ×3 (05:39→22:45)
[2018-10-23] MEDS: PANTOPRAZOLE 40MG INJ (PROTONIX) (C9113) IV SCH (08:15)
[2018-10-23] MEDS ORDERED: NORCO, ANEXSIA 5/325MG TABLET (HYDROcodone/ACETAMINOPHEN) PO PRN (10:30)
[2018-10-23] MEDS ORDERED: IBUPROFEN 600 MG TAB PO PRN (15:00)
--- NOTE | 2018-10-23 16:43 | IPN ---
DATE: 10/21/2018 HISTORY: The patient was admitted to the hospital late on October 20 with a history of abdominal pain with nausea and vomiting and a CT scan that suggested a small-bowel obstruction. An nasogastric (NG) tube was placed, and she was kept nothing by mouth. She has been receiving intravenous (IV) fluids. She was not started on any antibiotics. She had been placed on some Augmentin last week, treating what the provider thought was diverticulitis, and this has been held. Vital signs show that the patient has been afebrile since admission. Her pulse is in the 50s and low 60s. Blood pressure is good, and her room air oxygen saturations are normal. Intake and output show that she has had adequate urine output, though they are not doing a good job of measuring this. She appears to be well hydrated. Her NG tube is of a relatively small caliber but has been putting out a small amount of light soliz and fluid. Physical exam shows that she appears more comfortable today. She is sitting up in the bed, alert and oriented. Heart exam shows a regular rhythm of about 60. The lungs are clear. The abdomen is soft, and she has bowel sounds present. She reports no significant flatus today and no bowel movement. IMAGING STUDIES The patient had a KUB done this morning. This shows some air throughout the colon with some stool evident. There are no dilated loops of small bowel identified. The radiologist did note that fluid-filled dilated small bowel could not be identified on plain films. IMPRESSION: Patient is feeling better today, and her NG output has been relatively low. She has not had any flatus or bowel movement, however. This would be consistent with an obstruction, although, again, her symptoms have diminished. PLAN: The patient will be kept nothing by mouth with the NG tube in place. We will continue her IV fluid. I will recheck her laboratory studies and a KUB in the morning of October 22.
--- NOTE | 2018-10-23 16:54 | IPN ---
DATE: 10/22/2018 HISTORY: The patient was admitted on the evening of October 20 with several days of waxing and waning abdominal pain with some nausea and vomiting. A CT scan showed findings consistent with a small-bowel obstruction. This appeared to lie at the area of her previous small-bowel anastomosis. An nasogastric (NG) tube has been continued, and she remains on intravenous (IV) fluids. She did have a bowel movement earlier today but also had some severe epigastric pain through the morning, requiring treatment with Toradol and morphine. She has not had any flatus. Vital signs show that she remains afebrile with a pulse in the 60s and 50s and a normal blood pressure. Intake and output show that her urine output has been adequate. She has 1150 mL recorded from her NG tube today. PHYSICAL EXAMINATION: The patient is alert and oriented and is more comfortable now than she had been. She reports she still has some pressure in the epigastrium. Heart exam shows a regular rate and rhythm. The lungs are clear. The abdomen shows active bowel sounds in the upper abdomen. The abdomen is soft and nondistended. She does have tenderness in the epigastrium and down to about the level of the umbilicus, particularly on the right. There is no mass appreciated and no hernia. Laboratory studies this morning showed a white count of 10,000 with a hemoglobin of 13, hematocrit of 38, and a platelet count of 266,000. Her differential showed 50% neutrophils, 41% lymphocytes, and 7% monocytes. Chemistry profile showed that her potassium was slightly low at 3.4, and her chemistries were otherwise normal. IMAGING STUDIES: The patient had a repeat KUB today. This shows some diminished amount of air and what appears to be some stool in the colon, particularly in the region of the hepatic flexure and the splenic flexure and descending colon. There may be some faint shadowing of contrast in these areas. There are no dilated small-bowel loops identified on this flat image. IMPRESSION Patient is having continued to severe intermittent epigastric discomfort, and her NG output has increased. She is having no flatus and had a bowel movement today. Impression is that she still has a small-bowel obstruction. PLAN: I will check a CIP/troponin and EKG just to ensure that her epigastric pain that she has been having is not dental detail representative of a cardiac issue. I think this is extremely unlikely. If this was all normal, then I have recommended that we go to the operating room today to perform laparoscopy and possibly laparotomy to address her persistent small-bowel obstruction. The patient was counseled, and she desires to proceed.
[2018-10-24] VITALS: BP 132/61
[2018-10-24 04:00] VITALS: BP 142/79
[2018-10-24] MEDS: HEPARIN SOD (PORCINE) 5000 UNITS/ML VIAL SC SCH (05:56)
[2018-10-24 08:00] VITALS: BP 131/68
[2018-10-24] MEDS ORDERED: PANTOPRAZOLE 20 MG TAB PO SCH (09:00)
--- NOTE | 2018-10-24 17:57 | IPN ---
DATE: 10/23/2018 HISTORY: The patient is now postop day #1 from a laparoscopic lysis of adhesions and release of a small bowel obstruction. She has done very well overnight. She has had little pain and is tolerating clear liquids well as of this morning. She reports no flatus yet or bowel movement. She has been up ambulating. Vital signs: Show that she has been afebrile since surgery last evening. Her pulse is in the 40s and 50s, and her blood pressure is good. Intake and output shows that she has taken clear liquids well this morning. Her urine output is good. Physical exam shows the patient looking quite comfortable. She is alert and oriented. Heart exam shows a regular rhythm. The abdomen is obese but soft. She has positive bowel sounds. There is no undue tenderness. IMPRESSION: The patient is doing very well now one day postop from her laparoscopic lysis of adhesions for a bowel obstruction. She has been tolerating clear liquids well this morning. PLAN: The patient will be advanced to a regular diet, though I advised her to go slowly. We will move her toward oral medications, and if she does well, she may be ready for discharge tomorrow.
--- NOTE | 2018-10-25 07:54 | IPN ---
DATE: 10/24/2018 The patient is now postop day 2 from laparoscopy with lysis of adhesions and release of small-bowel obstruction. She was advanced to regular food yesterday. She has had no pain medicines since some ibuprofen last evening. She is voiding well and passing flatus and denies any significant pain. Vital signs show that she has been afebrile. Her pulse is stable in the upper 40s to 60, and her blood pressure is good. Intake and output shows she had over a liter in orally yesterday and her urine output has been excellent. PHYSICAL EXAMINATION: The patient is sitting up in the chair dressed and appears ready to go. She is alert and oriented and denies any pain. Heart exam shows a regular rhythm. Her incisions are healing well. Steri-Strips remain in place. She has some small bruises as anticipated. The abdomen is otherwise without undue tenderness. IMPRESSION: The patient is doing well status post laparoscopic lysis of adhesions. She is tolerating a regular diet. PLAN: The patient will be discharged home. She should follow-up with me in a week to 10 days or call sooner for problems. I have discussed return to work with her and she can return to work on Sunday, October 28, 2018. She should avoid strenuous activity for the next 2 weeks. She can take [id number] medications as necessary for discomfort.
--- NOTE | 2018-10-27 11:20 | RO ---
DATE OF PROCEDURE: 10/22/2018 PREOPERATIVE DIAGNOSIS: Small-bowel obstruction secondary to adhesions. POSTOPERATIVE DIAGNOSIS: Small-bowel obstruction secondary to adhesions. PROCEDURE PERFORMED: Laparoscopic lysis of adhesions with release of small-bowel obstruction. SURGEON: Dr. Webber [employer]BSURFACE AUGMENTEE OPERATOR: ANESTHESIA: General. INDICATIONS FOR PROCEDURE: Patient is a 53-year-old woman who presented on October 20 with signs and symptoms of a small bowel obstruction. She has been monitored in the hospital with a nasogastric tube in place and has continued to have some upper abdominal pain with a lack of bowel function. She is now for laparoscopy and possible laparotomy for release of her small bowel obstruction. OPERATIVE PROCEDURE: The patient was brought to the operating room and placed on the table in a supine position. She was placed under general endotracheal anesthesia. TEDs and sequentials were utilized and a Maldonado catheter was inserted. The patient's abdomen was prepped and draped in a sterile fashion. Initial entry into the abdomen was in the right upper quadrant. 0.25% Marcaine was infiltrated at the trocar sites for insertion. A short transverse incision was made in the right upper quadrant and a Veress needle was inserted. After positive hanging drop test, the abdomen was insufflated with carbon dioxide gas. A 5 mm trocar was placed over 5 mm port and this was advanced through the abdominal wall without difficulty. Insufflation continued and inspection was performed. The patient's liver was noted and appeared normal. There were some adhesions of the omentum to the anterior abdominal wall, particularly along the midline and extending across the left mid and lower part of the abdomen. A second 5 mm port was placed lower in the right lower quadrant and ultimately a third 5 mm port was placed higher up in the epigastrium just to the left of the falciform ligament to allow retraction. The patient was tilted to a Trendelenburg position. Graspers were inserted. The harmonic scalpel was used to separate the adhesions of the anterior abdominal wall. This began to the right of the midline and was carried to the left across the midline, dividing all of the adhesions of the omentum to the anterior abdominal wall. This was carried all the way over to the left side of the abdomen. In the neck, there were some adhesions of the omentum to the anterior abdominal wall. Also there was a single moderately dilated appearing loop of what was found to the jejunum, which appeared to have a small to the bowel as it attached to the abdominal wall. This was also freed and the bowel was from the omentum. The ligament of Treitz was then identified. The small bowel was inspected beginning proximally and extending distally. There were some adhesions also of an additional segment of small bowel to adhesions in the omentum. This was probably in the proximal third of the small bowel. There did appear to be some moderate dilation of the proximal small bowel, which disappeared distally. There was not a distinct point of obstruction identified. The small bowel was run from proximal to distal and there were no other abnormalities identified. The cecum was clearly identified, as was the appendix. The patient was then returned to a flatter position and the small bowel was run a second time from the ileocecal valve proximally and again there were no new abnormalities identified. There was no sign of perforation or bowel injury. Visualized portions of the colon appeared nondistended and noninflamed. The patient was placed flat. The abdomen was deflated and the trocars were all removed. The incisions were closed with buried #[id number] Vicryl and Steri-Strips. The patient's Maldonado catheter was removed. Her nasogastric tube was also removed. She was awakened in the operating room, extubated and moved to the recovery room in stable condition.
== END 2018-10-24 12:10 | disposition home or self-care (01) | DRG 224 ==
LOC: M ED 16:10 → M ED INP 23:09 → M PED 10-22 13:45
PROVIDERS: ADMIT Surgery; ATTEND Surgery
PROC: 0DN84ZZ Release Small Intestine, Percutaneous Endoscopic Approach (ICD-10-PCS; 2018-10-22)
PROC: 0DNA4ZZ Release Jejunum, Percutaneous Endoscopic Approach (ICD-10-PCS; principal; 2018-10-22 17:00)
DX: K56.51 Intestinal adhesions [bands], with partial obstruction (principal); K21.9 Gastro-esophageal reflux disease without esophagitis; Z96.652 Presence of left artificial knee joint; Z90.49 Acquired absence of other specified parts of digestive tract; Z98.0 Intestinal bypass and anastomosis status

== ENCOUNTER → 2022-02-14 | Outpatient (REF) | payer BC, OTHER ==
[~2022-02-14] MED LIST changes: -/ONDA4TA OR; -/PANT40TA OR; +AMMO12CR7 TOP; +AUGM875T28 PO; +IBUP1TAB6 PO; +ONDA-1 OR; -PANT20TA2 PO; +PANT20TA6 PO; +PROT1TAB2 OR
== END ==
LOC: M LAB REF 09:35
PROVIDERS: ATTEND Surgery
DX: L90.5 Scar conditions and fibrosis of skin (principal)

== ENCOUNTER → 2024-08-01 | Outpatient (REF) | payer OTHER | LOC: M LAB REF 18:35 | PROVIDERS: ATTEND Physician Assistant Medical | DX: N39.0 Urinary tract infection, site not specified (principal) ==

== ENCOUNTER 2025-06-15 10:22 | Emergency (ER) | payer OTHER ==
[~2025-06-15] VITALS: Ht 162.6 cm; Wt 126.2 kg
[~2025-06-15 10:22] MED LIST changes: +AMMO12CR4 TOP; -AMMO12CR7 TOP; -IBUP1TAB6 PO; +SFHIBU600 PO
[2025-06-15 11:32] LABS: BASO # 0.0 10^3/uL (0.0-0.2); BASO % 0.6 % (0.0-1.0); EOS # 0.1 10^3/uL (0.0-0.5); EOS % 1.5 % (0.0-3.0); LYMPH # 2.4 10^3/uL (1.5-5.0); LYMPH % 33.9 % (24.0-44.0); MONO # 0.5 10^3/uL (0.0-0.8); MONO % 7.1 % (2.0-8.0); NEUTROPHILS # 4.1 10^3/uL (1.5-8.5); NEUTROPHILS % 56.6 % (36.0-66.0); PLATELET COUNT, AUTOMATED 288 10^3/uL (150-450)
[2025-06-15 11:49] LABS: CALCIUM LEVEL 9.1 MG/DL (8.3-10.6); CARBON DIOXIDE LEVEL 24.5 MMOL/L (20-31); CHLORIDE LEVEL 106.0 MMOL/L (98-107); CREATININE FOR GFR 0.77 MG/DL (0.55-1.30); GLOMERULAR FILTRATION RATE 87.2 (>45); POTASSIUM SERUM 5.6 MMOL/L (3.5-5.1); SODIUM LEVEL 140.0 MMOL/L (136-145)
[2025-06-15 11:53] LABS: INR 0.93
[2025-06-15] MEDS: FLUORESCEIN OPHTH 1 MG STRIP OU ONE (11:55)
[2025-06-15] MEDS: TETRACAINE 0.5% OPHTH SOLN 4ML OU ONE (11:55)
[2025-06-15] MEDS ORDERED: ISOVUE-370 76% 100 ML VIAL As Ordered ONE (11:57)
[2025-06-15 14:00] VITALS: BP 143/89
[2025-06-15] MEDS ORDERED: HOME MED LIST COMPLETE! XX SCH (14:30)
[2025-06-15 15:00] VITALS: O2SAT 95
[2025-06-15 15:36] VITALS: TEMP 97.9
== END 2025-06-15 15:37 | disposition home or self-care (01) ==
LOC: M ED 10:22
DX: S20.212A Contusion of left front wall of thorax, initial encounter (principal); V43.62XA Car passenger injured in collision with other type car in traffic accident, initial encounter; Y92.9 Unspecified place or not applicable; Y93.9 Activity, unspecified; Y99.9 Unspecified external cause status; M54.9 Dorsalgia, unspecified; K21.9 Gastro-esophageal reflux disease without esophagitis; K57.92 Diverticulitis of intestine, part unspecified, without perforation or abscess without bleeding; K76.0 Fatty (change of) liver, not elsewhere classified; M50.30 Other cervical disc degeneration, unspecified cervical region; Z88.1 Allergy status to other antibiotic agents; Z88.2 Allergy status to sulfonamides; Z88.8 Allergy status to other drugs, medicaments and biological substances
CPT/HCPCS: 70450; 71260; 72125; 80047; 80048; 85025; 85610; 85730; 86850; 86900; 86901; 99284; Q9967